=== PATIENT | female | born 1975 | race Caucasian/White ===

== ENCOUNTER 2016-11-17 15:37 | Emergency (ER) | payer BC, MEDICAID ==
[~2016-11-17] VITALS: Wt 72.0 kg
[~2016-11-17 15:37] MED LIST: AMO500 PO; AUG875 PO; CALC-649; FERR240T9; HYDR-3498 PO; IBUP-1542 PO; NITR-58 PO; PHEN-538 PO; PREN-15; PRENATAL VITAMINS; VIT1TABL76
[2016-11-17] MEDS ORDERED: CEPH-443 PO (16:51)
[2016-11-17] MEDS ORDERED: IBUP-1542 PO (16:51)
[2016-11-17] MEDS ORDERED: ULT50 PO (16:51)
--- NOTE | 2016-11-17 16:54 | ERD ---
ER Documentation Chief Complaint Date/Time DATE: 11/17/16 TIME: 16:53 Chief Complaint left lower dental pain for the past 3 days. HPI This 41-year-old female presents with left lower dental pain for last week. She has an appointment with a dentist x-ray patient is a fevers, vomiting, chest pain, difficulty swallowing or difficulties with breathing. ROS All systems reviewed and are negative except as per history of present illness. Medications Home Meds Active Scripts Ibuprofen* (Motrin*) 600 Mg Tab, 600 MG PO Q6, #20 TAB Prov:VAN MITCHELL MD 11/17/16 Tramadol HCl (Tramadol HCl) 50 Mg Tablet, 50 MG PO Q4 Y for PAIN, #20 TAB Prov:VAN MITCHELL MD 11/17/16 Cephalexin* (Keflex*) 500 Mg Capsule, 500 MG PO QID for 10 Days, CAP Prov:VAN MITCHELL MD 11/17/16 Phenazopyridine Hcl* (Pyridium*) 200 Mg Tab, 200 MG PO TID Y for URINARY PAIN, # 6 TAB Prov:DAKOTA SAAVEDRA NP 11/06/16 Nitrofurantoin Monohyd Macrocr* (Macrobid*) 100 Mg Capsr, 100 MG PO BID for 7 Days, CAP Prov:DAKOTA SAAVEDRA NP 11/06/16 Amoxicillin* (Amoxicillin*) 500 Mg Cap, 500 MG PO TID for 10 Days, CAP Prov:CHANTEL LÓPEZ PA-C 04/07/16 Ibuprofen* (Motrin*) 600 Mg Tab, 600 MG PO Q6, #30 TAB Prov:CHANTEL LÓPEZ PA-C 04/07/16 Ibuprofen* (Ibuprofen*) 600 Mg Tablet, 600 MG PO Q6, #30 TAB Prov:CHANTEL LÓPEZ PA-C 10/03/15 Amoxicillin-Clavulanate K* (Augmentin*) 875 Mg Tab, 875 MG PO BID for 7 Days, TAB Prov:CHANTEL LÓPEZ PA-C 10/03/15 Hydrocodone Bit-Acetaminophen* ([place]*) 5-325 Mg Tab, 1 TAB PO Q4H Y for PAIN, # 20 TAB Prov:CHANTEL LÓPEZ PA-C 10/03/15 Reported Medications Calcium Carbonate (Calcium) 1 Tab Tablet 09/01/10 Vit B12/Pyridoxine Hcl/Vit B1 (Pv Neuro Eve Tablet) 1 Tab Tablet 09/01/10 Ferrous Gluconate (Iron) 1 Tab Tablet 09/01/10 Vit/Fe Fumarate/Fa (Prenafirst Tablet) 1 Tab Tablet 09/01/10 [ Vitamins] No Conflict Check 06/29/10 Allergies Allergies: Coded Allergies: No Known Drug Allergies (Verified Allergy, Mild, 11/17/16) PMhx/Soc History of Surgery: Yes () Anesthesia Reaction: No Hx Neurological Disorder: No Hx Respiratory Disorders: No Hx Cardiac Disorders: No Hx Psychiatric Problems: No Hx Miscellaneous Medical Probl: No Hx Alcohol Use: No Hx Substance Use: No Hx Tobacco Use: No Physical Exam Vitals Vital Signs Date Time Temp Pulse Resp B/P Pulse Ox O2 Delivery O2 Flow Rate FiO2 11/17/16 15:41 98.5 95 20 115/74 96 Physical Exam Const: [] Alert, [id number] per Head: Atraumatic Eyes: Normal Conjunctiva ENT: Normal External Ears, Nose and Mouth. Patient has diffuse poor dentition primary in the left lower molar area. There is some surrounding gum erythema without facial swelling or induration and airway is patent. Neck: Full range of motion..~ No meningismus. Resp: Clear to auscultation bilaterally Cardio: Regular rate and rhythm, no murmurs Abd: Soft, non tender, non distended. Normal bowel sounds Skin: No petechiae or rashes Back: No midline or flank tenderness Ext: No cyanosis, or edema Neur: Awake and alert Psych: Normal Mood and Affect Procedures/MDM Patient presents with left lower dental pain with carious teeth possible early abscess without facial cellulitis, or obstruction, signs of sepsis. She will treated with Keflex and tramadol instructions to follow-up with dentist as scheduled. The patient was stable with no new complaints during the ER course. Clinically, there is no current evidence to suggest meningitis, sepsis, acute abdomen, pneumonia, acute coronary syndrome, pulmonary embolism, or any other emergent condition appearing to require further evaluation or hospitalization. The patient should certainly return for any new or worsening symptoms per the aftercare instructions. They should otherwise follow-up with her primary care doctor for reevaluation this week. Departure Diagnosis: Primary Impression: Pain, dental Condition: Stable Patient Instructions: Dental Pain Referrals: [facility] ([facility] walk in clinic) Additional Instructions: Cheque otro vez con metzger doctor primario/ dentista en el proximo talavera or regresa para mas o nueva simptomas. VAN MITCHELL MD Nov 17, 2016 16:54
== END 2016-11-17 18:03 | disposition home or self-care (01) ==
LOC: FTE 15:37
DX: K08.89 Other specified disorders of teeth and supporting structures (principal)
CPT/HCPCS: 99284

== ENCOUNTER 2016-11-28 11:32 | Emergency (ER) | payer BC ==
[~2016-11-28] VITALS: Ht 160 cm; Wt 77.0 kg
[~2016-11-28 11:32] MED LIST changes: +CEPH-443 PO; +ULT50 PO
[2016-11-28 11:37] VITALS: Ht 160 cm; Wt 77.0 kg
[2016-11-28 14:35] LABS: URINE BLOOD (Dip) POC Trace-lysed (NEGATIVE)
[2016-11-28] MEDS ORDERED: D-ME473S18 PO (14:48)
[2016-11-28] MEDS ORDERED: AZIT250T94 PO (14:49)
[2016-11-28 14:59] VITALS: BP 123/69; PULSE 81; RESP 20
--- NOTE | 2016-11-28 19:55 | ERD ---
ER Documentation Chief Complaint Date/Time DATE: 11/28/16 TIME: 19:54 Chief Complaint SORE THROAT , COUGH X 1 WEEK HPI This is a 41-year-old female presents today with a cough for a week. Cough is dry and constant patient also has a sore throat. Patient has been taking over- the-counter cough syrup however has not worked. Patient is complaining of urinary frequency however denies dysuria. She denies any fevers or chills. She denies any chest pain or shortness of breath. Her daughter is sick with similar symptoms. ROS 12 point review of systems was done, all negative except per HPI. Medications Home Meds Active Scripts Azithromycin* (Zithromax*) 250 Mg Tablet, 250 MG PO .ZPACK DIRECTED, #6 TAB TAKE 500 MG (2 TABS) THE FIRST DAY THEN 250 MG (1 TAB) DAYS 2-5 Prov:SAWYER PACHECO 11/28/16 Dextromethorphan Hb-Promethazine Hcl (Promethazine DM Syrup) 473 Ml Syrup, 10 ML PO Q6H Y for tos, #4 OZ Prov:SAWYER PACHECO 11/28/16 Ibuprofen* (Motrin*) 600 Mg Tab, 600 MG PO Q6, #20 TAB Prov:VAN MITCHELL MD 11/17/16 Tramadol HCl (Tramadol HCl) 50 Mg Tablet, 50 MG PO Q4 Y for PAIN, #20 TAB Prov:VAN MITCHELL MD 11/17/16 Cephalexin* (Keflex*) 500 Mg Capsule, 500 MG PO QID for 10 Days, CAP Prov:VAN MITCHELL MD 11/17/16 Phenazopyridine Hcl* (Pyridium*) 200 Mg Tab, 200 MG PO TID Y for URINARY PAIN, # 6 TAB Prov:DAKOTA SAAVEDRA NP 11/06/16 Nitrofurantoin Monohyd Macrocr* (Macrobid*) 100 Mg Capsr, 100 MG PO BID for 7 Days, CAP Prov:DAKOTA SAAVEDRA NP 11/06/16 Amoxicillin* (Amoxicillin*) 500 Mg Cap, 500 MG PO TID for 10 Days, CAP Prov:CHANTEL LÓPEZ PA-C 04/07/16 Ibuprofen* (Motrin*) 600 Mg Tab, 600 MG PO Q6, #30 TAB Prov:CHANTEL LÓPEZ PA-C 04/07/16 Ibuprofen* (Ibuprofen*) 600 Mg Tablet, 600 MG PO Q6, #30 TAB Prov:CHANTEL LÓPEZ PA-C 10/03/15 Amoxicillin-Clavulanate K* (Augmentin*) 875 Mg Tab, 875 MG PO BID for 7 Days, TAB Prov:CHANTEL LÓPEZ PA-C 10/03/15 Hydrocodone Bit-Acetaminophen* ([place]*) 5-325 Mg Tab, 1 TAB PO Q4H Y for PAIN, # 20 TAB Prov:CHANTEL LÓPEZ PA-C 10/03/15 Reported Medications Calcium Carbonate (Calcium) 1 Tab Tablet 09/01/10 Vit B12/Pyridoxine Hcl/Vit B1 (Pv Neuro Eve Tablet) 1 Tab Tablet 09/01/10 Ferrous Gluconate (Iron) 1 Tab Tablet 09/01/10 Vit/Fe Fumarate/Fa (Prenafirst Tablet) 1 Tab Tablet 09/01/10 [ Vitamins] No Conflict Check 06/29/10 Allergies Allergies: Coded Allergies: No Known Drug Allergies (Verified Allergy, Mild, 11/17/16) PMhx/Soc History of Surgery: Yes () Anesthesia Reaction: No Hx Neurological Disorder: No Hx Respiratory Disorders: No Hx Cardiac Disorders: No Hx Psychiatric Problems: No Hx Miscellaneous Medical Probl: No Hx Alcohol Use: No Hx Substance Use: No Hx Tobacco Use: No Smoking Status: Never smoker Physical Exam Vitals Vital Signs Date Time Temp Pulse Resp B/P Pulse Ox O2 Delivery O2 Flow Rate FiO2 11/28/16 14:59 81 20 123/69 100 Room Air 11/28/16 11:37 98.2 82 18 123/60 99 Physical Exam GENERAL: The patient is well-developed, well-nourished, in no acute distress. NECK: Cervical spine is non tender with no step off. Supple, no nuchal rigidity HEENT: Atraumatic. Pupils equal, round and reactive to light. Extraocular muscles are grossly intact. Conjunctivae pink, no discharge. Bilateral tympanic membranes are clear with no evidence of erythema, effusion or dulling of the light reflex. Tonsilar erythema with no exudates or uvular deviation. Clear rhinorrhea. RESPIRATORY: Clear to auscultation bilaterally. There are no rales, wheezes or rhonchi. HEART: Regular rate and rhythm. No murmurs, clicks, rubs or gallops. EXTREMITIES: No clubbing or cyanosis. Full range of motion. Grossly neurovascularly intact. NEUROLOGIC: Alert and oriented. Cranial nerves II through XII are intact. SKIN: There is no rash. The skin is warm and dry. Results 24 hrs Laboratory Tests Test 11/28/16 14:36 Bedside Urine Blood Trace-lysed Bedside Urine Glucose (UA) Negative Bedside Urine Ketones (LAB) Negative Bedside Urine Leukocyte Esterase (L Negative Bedside Urine Nitrite (LAB) Negative Bedside Urine Protein (LAB) Negative Bedside Urine pH (LAB) 5.0 Procedures/MDM Differential diagnosis includes but is not limited to; Viral URI, allergic rhinitis, bronchitis, pertussis,pneumonia. This is likely viral in etiology. Clinical suspicion for pneumonia is low as patient appears well, is not hypoxic or in any respiratory distress. Additionally, patients physical examination is benign. Plan was discussed with patient they understand and agree. Patient needs to follow up with PCP in 1-2 days or return to ER sooner if symptoms worsen. Departure Diagnosis: Primary Impression: Upper respiratory infection Condition: Stable Patient Instructions: Preventing Common Respiratory Infections Additional Instructions: Llame al doctor MAANA y brittney mireille TALITA PARA DENTRO DE 1-2 [place].Dgale a la secretaria que nosotros le instruimos hacer esta talita.Avise o llame si metzger condicin se empeora antes de la talita. Regresa aqui si peor o no mejor. SAWYER PACHECO Nov 28, 2016 19:55
== END 2016-11-28 15:01 | disposition home or self-care (01) ==
LOC: FTE 11:32
DX: J06.9 Acute upper respiratory infection, unspecified (principal)
CPT/HCPCS: 81003; 99284

== ENCOUNTER 2016-12-21 12:56 | Emergency (ER) | payer BC ==
[~2016-12-21] VITALS: Ht 157.5 cm; Wt 76.5 kg
[~2016-12-21 12:56] MED LIST changes: +AZIT250T94 PO; +D-ME473S18 PO; +TRAM50TA2 PO; -ULT50 PO
[2016-12-21 13:00] VITALS: Ht 157.5 cm; Wt 76.5 kg
[2016-12-21] MEDS ORDERED: NPH10OT RIGHT EAR (13:27)
[2016-12-21] MEDS ORDERED: ACET1TAB40 PO (13:27)
[2016-12-21] MEDS ORDERED: DOXY100T20 PO (13:27)
--- NOTE | 2016-12-21 13:32 | ERD ---
ER Documentation Chief Complaint Date/Time DATE: 12/21/16 TIME: 13:30 Chief Complaint Complains of right ear pain x 3 days HPI This 41-year-old female presents with right ear pain for last 3 days. She has cough, congestion, bleeding or discharge. ROS All systems reviewed and are negative except as per history of present illness. Medications Home Meds Active Scripts Acetaminophen with Codeine (Acetaminophen-Cod #3 Tablet) 1 Each Tablet, 1 TAB PO Q6H Y for PAIN, #10 TAB Prov:VAN MITCHELL MD 12/21/16 Neomycin/Polymyxin/Hydrocort* (Cortisporin* Otic) 10 Ml Susp, 4 DROP RIGHT EAR QID for 7 Days, EA Prov:VAN MITCHELL MD 12/21/16 Doxycycline Hyclate* (Doxycycline Hyclate*) 100 Mg Tablet.dr, 100 MG PO BID for 7 Days, TAB Prov:VAN MITCHELL MD 12/21/16 Azithromycin* (Zithromax*) 250 Mg Tablet, 250 MG PO .ZPACK DIRECTED, #6 TAB TAKE 500 MG (2 TABS) THE FIRST DAY THEN 250 MG (1 TAB) DAYS 2-5 Prov:SAWYER PACHECO 11/28/16 Dextromethorphan Hb-Promethazine Hcl (Promethazine DM Syrup) 473 Ml Syrup, 10 ML PO Q6H Y for tos, #4 OZ Prov:SAWYER PACHECO 11/28/16 Ibuprofen* (Motrin*) 600 Mg Tab, 600 MG PO Q6, #20 TAB Prov:VAN MITCHELL MD 11/17/16 Tramadol HCl (Tramadol HCl) 50 Mg Tablet, 50 MG PO Q4 Y for PAIN, #20 TAB Prov:VAN MITCHELL MD 11/17/16 Cephalexin* (Keflex*) 500 Mg Capsule, 500 MG PO QID for 10 Days, CAP Prov:VAN MITCHELL MD 11/17/16 Phenazopyridine Hcl* (Pyridium*) 200 Mg Tab, 200 MG PO TID Y for URINARY PAIN, # 6 TAB Prov:DAKOTA SAAVEDRA NP 11/06/16 Nitrofurantoin Monohyd Macrocr* (Macrobid*) 100 Mg Capsr, 100 MG PO BID for 7 Days, CAP Prov:DAKOTA SAAVEDRA CATHERINE 11/06/16 Amoxicillin* (Amoxicillin*) 500 Mg Cap, 500 MG PO TID for 10 Days, CAP Prov:CHANTEL LÓPEZ SYBIL 04/07/16 Ibuprofen* (Motrin*) 600 Mg Tab, 600 MG PO Q6, #30 TAB Prov:CHANTEL LÓPEZ SYBIL 04/07/16 Ibuprofen* (Ibuprofen*) 600 Mg Tablet, 600 MG PO Q6, #30 TAB Prov:CHANTEL LÓPEZ SYBIL 10/03/15 Amoxicillin-Clavulanate K* (Augmentin*) 875 Mg Tab, 875 MG PO BID for 7 Days, TAB Prov:CHANTEL LÓPEZ SYBIL 10/03/15 Hydrocodone Bit-Acetaminophen* ([place]*) 5-325 Mg Tab, 1 TAB PO Q4H Y for PAIN, # 20 TAB Prov:CHANTEL LÓPEZ SYBIL 10/03/15 Reported Medications Calcium Carbonate (Calcium) 1 Tab Tablet 09/01/10 Vit B12/Pyridoxine Hcl/Vit B1 (Pv Neuro Eve Tablet) 1 Tab Tablet 09/01/10 Ferrous Gluconate (Iron) 1 Tab Tablet 09/01/10 Vit/Fe Fumarate/Fa (Prenafirst Tablet) 1 Tab Tablet 09/01/10 [ Vitamins] No Conflict Check 06/29/10 Allergies Allergies: Coded Allergies: No Known Drug Allergies (Verified Allergy, Mild, 11/17/16) PMhx/Soc History of Surgery: Yes () Anesthesia Reaction: No Hx Neurological Disorder: No Hx Respiratory Disorders: No Hx Cardiac Disorders: No Hx Psychiatric Problems: No Hx Miscellaneous Medical Probl: No Hx Alcohol Use: No Hx Substance Use: No Hx Tobacco Use: No Physical Exam Vitals Vital Signs Date Time Temp Pulse Resp B/P Pulse Ox O2 Delivery O2 Flow Rate FiO2 12/21/16 13:00 98.3 87 20 116/74 98 Physical Exam Const: [] Alert, [id number] Head: Atraumatic Eyes: Normal Conjunctiva ENT: Normal External Ears, Nose and Mouth. There is some tenderness and pain with passive range of motion of the right external ear. There is a small papule in the external auditory canal without erythema or induration. TM appears normal. Neck: Full range of motion..~ No meningismus. Resp: Clear to auscultation bilaterally Cardio: Regular rate and rhythm, no murmurs Abd: Soft, non tender, non distended. Normal bowel sounds Skin: No petechiae or rashes Back: No midline or flank tenderness Ext: No cyanosis, or edema Neur: Awake and alert Psych: Normal Mood and Affect Procedures/MDM Patient presents with signs and symptoms of right otitis externa with likely folliculitis of the external auditory canal. She will be treated with Cortisporin, doxycycline and Tylenol No. 3. There is no evidence of significant facial cellulitis, malignant otitis externa, mastoiditis Departure Diagnosis: Primary Impression: Otitis externa Otitis externa type: unspecified type Laterality: right Chronicity: acute Qualified Code: H60.501 - Acute otitis externa of right ear, unspecified type Additional Impression: Right ear pain Condition: Stable Patient Instructions: External Ear Infection (Adult) Additional Instructions: Cheque otro vez con metzger doctor primario en el proximo talavera or regresa para mas o nueva simptomas. VAN MITCHELL MD Dec 21, 2016 13:32
== END 2016-12-21 13:35 | disposition home or self-care (01) ==
LOC: FTE 12:56
DX: H60.501 Unspecified acute noninfective otitis externa, right ear (principal)
CPT/HCPCS: 99284

== ENCOUNTER 2016-12-28 08:34 | Emergency (ER) | payer BC ==
[~2016-12-28] VITALS: Ht 154.9 cm; Wt 76.0 kg
[~2016-12-28 08:34] MED LIST changes: +ACET1TAB40 PO; +DOXY100T20 PO; +NPH10OT RIGHT EAR
[2016-12-28 08:36] VITALS: Ht 154.9 cm; Wt 76.0 kg
[2016-12-28] MEDS ORDERED: AMOX1TAB10 PO (09:02)
[2016-12-28] MEDS ORDERED: CIPR7.5D4 RIGHT EAR (09:02)
[2016-12-28] MEDS ORDERED: IBUP-1542 PO (09:04)
--- NOTE | 2016-12-28 09:10 | ERD ---
ER Documentation Chief Complaint Date/Time DATE: 12/28/16 TIME: 09:05 Chief Complaint right ear pain x 1 week, finished antibiotics yesterday HPI 41-year-old female complaining of right ear pain 1 week. Patient was seen here 7 days ago was diagnosed with otitis externa. She was given Cortisporin otic and doxycycline p.o. Patient stated that she finished all the antibiotics yesterday, but she still has the ear pain. Now she is unable to hear from the right ear. Denies fever or chills. Denies facial or jaw pain or swelling. ROS All systems reviewed and are negative except as per history of present illness. Medications Home Meds Active Scripts Ibuprofen* (Motrin*) 600 Mg Tab, 600 MG PO Q6H Y for PAIN AND OR ELEVATED TEMP, #30 TAB Prov:IESHA WHITT REHAB RN 12/28/16 Amoxicillin/Potassium Clav (Amox-Clav 875-125 mg Tablet) 875-125 mg Tab, 1 TAB PO BID for 7 Days, #14 TAB Prov:IESHA WHITT NP 12/28/16 Ciprofloxacin Hcl/Dexameth (Ciprodex Otic Suspension) 7.5 Ml Drops.susp, 4 DROP RIGHT EAR BID for 7 Days, EA Prov:IESHA WHITT NP 12/28/16 Acetaminophen with Codeine (Acetaminophen-Cod #3 Tablet) 1 Each Tablet, 1 TAB PO Q6H Y for PAIN, #10 TAB Prov:VAN MITCHELL MD 12/21/16 Neomycin/Polymyxin/Hydrocort* (Cortisporin* Otic) 10 Ml Susp, 4 DROP RIGHT EAR QID for 7 Days, EA Prov:VAN MITCHELL MD 12/21/16 Doxycycline Hyclate* (Doxycycline Hyclate*) 100 Mg Tablet.dr, 100 MG PO BID for 7 Days, TAB Prov:VAN MITCHELL MD 12/21/16 Azithromycin* (Zithromax*) 250 Mg Tablet, 250 MG PO .SCOTTY DIRECTED, #6 TAB TAKE 500 MG (2 TABS) THE FIRST DAY THEN 250 MG (1 TAB) DAYS 2-5 Prov:SAWYER PACHECO 11/28/16 Dextromethorphan Hb-Promethazine Hcl (Promethazine DM Syrup) 473 Ml Syrup, 10 ML PO Q6H Y for tos, #4 OZ Prov:SAWYER PACHECO 11/28/16 Ibuprofen* (Motrin*) 600 Mg Tab, 600 MG PO Q6, #20 TAB Prov:VAN MITCHELL MD 11/17/16 Tramadol HCl (Tramadol HCl) 50 Mg Tablet, 50 MG PO Q4 Y for PAIN, #20 TAB Prov:VAN MITCHELL MD 11/17/16 Cephalexin* (Keflex*) 500 Mg Capsule, 500 MG PO QID for 10 Days, CAP Prov:VAN MITCHELL MD 11/17/16 Phenazopyridine Hcl* (Pyridium*) 200 Mg Tab, 200 MG PO TID Y for URINARY PAIN, # 6 TAB Prov:DAKOTA SAAVEDRA NP 11/06/16 Nitrofurantoin Monohyd Macrocr* (Macrobid*) 100 Mg Capsr, 100 MG PO BID for 7 Days, CAP Prov:DAKOTA SAAVEDRA NP 11/06/16 Amoxicillin* (Amoxicillin*) 500 Mg Cap, 500 MG PO TID for 10 Days, CAP Prov:CHANTEL LÓPEZ PA-C 04/07/16 Ibuprofen* (Motrin*) 600 Mg Tab, 600 MG PO Q6, #30 TAB Prov:CAHNTEL LÓPEZ PA-C 04/07/16 Ibuprofen* (Ibuprofen*) 600 Mg Tablet, 600 MG PO Q6, #30 TAB Prov:CHANTEL LÓPEZ PA-C 10/03/15 Amoxicillin-Clavulanate K* (Augmentin*) 875 Mg Tab, 875 MG PO BID for 7 Days, TAB Prov:CHANTEL LÓPEZ PA-C 10/03/15 Hydrocodone Bit-Acetaminophen* ([place]*) 5-325 Mg Tab, 1 TAB PO Q4H Y for PAIN, # 20 TAB Prov:CHANTEL LÓPEZ PA-C 10/03/15 Reported Medications Calcium Carbonate (Calcium) 1 Tab Tablet 09/01/10 Vit B12/Pyridoxine Hcl/Vit B1 (Pv Neuro Eve Tablet) 1 Tab Tablet 09/01/10 Ferrous Gluconate (Iron) 1 Tab Tablet 09/01/10 Vit/Fe Fumarate/Fa (Prenafirst Tablet) 1 Tab Tablet 09/01/10 [ Vitamins] No Conflict Check 06/29/10 Allergies Allergies: Coded Allergies: No Known Drug Allergies (Verified Allergy, Mild, 11/17/16) PMhx/Soc Medical and Surgical Hx: pt denies Medical Hx History of Surgery: No Anesthesia Reaction: No Hx Neurological Disorder: No Hx Respiratory Disorders: No Hx Cardiac Disorders: No Hx Psychiatric Problems: No Hx Miscellaneous Medical Probl: No Hx Alcohol Use: No Hx Substance Use: No Hx Tobacco Use: No Smoking Status: Never smoker Physical Exam Vitals Vital Signs Date Time Temp Pulse Resp B/P Pulse Ox O2 Delivery O2 Flow Rate FiO2 12/28/16 08:36 98.7 68 18 129/68 100 Physical Exam General impression: Well-developed, well-nourished. Alert, oriented, in no acute distress Head: Normocephalic, atraumatic. Eyes: PERRL, EOM normal. Conjunctiva not injected. ENT: Left external canals clear, TM pearly anaya. Right canal erythema with canal narrowing, serous drainage noted. No tragal or auricle erythema, swelling , or tenderness. No TM erythema or bulging. Nasal mucosa, oral mucosa and oropharynx are normal. Neck: Supple, nontender. No lymphadenopathy. No nuchal rigidity. Respiration: Normal respiratory effort. Lungs clear to auscultate bilaterally. No wheezes, rales or rhonchi. Cardiovascular: Regular rate and rhythm. No murmurs or extra heart sounds. Neuro: Mental status normal, speech normal. 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 Skin: Normal turgor. No rash or lesions. Psych: Normal mood and affect. Procedures/MDM Well-appearing 41-year-old female presented to ED with right otitis externa that did not resolve after 7 days of antibiotics treatment. No sign of mastoiditis or otitis media. I will prescribe her with different antibiotics and have her follow-up with her PCP for ENT referral. Patient appears well, stable for discharge and outpatient management. Medical decision making shared with patient and family. Education provided to patient and family. Patient and family expressed understanding of the plan. Medications on discharge: Ciprodex otic, Augmentin. Follow-up: Primary care provider in 2-3 days or return to ED if worse. Departure Diagnosis: Primary Impression: Otitis externa of right ear Otitis externa type: other infective Chronicity: acute Qualified Code: H60.391 - Other infective acute otitis externa of right ear Condition: Good Patient Instructions: External Ear Infection (Adult) [facility] Usted se cardoza hecho un examen mdico de control que le indica que no est en mireille condicin que requiera tratamiento urgente en el Departamento de Emergencia. Un estudio ms profundo y el tratamiento de richter condicin pueden esperar sin ningn riesgo hasta que usted sea atendida/o en el consultorio de richter mdico o mireille cl indira. Es responsabilidad suya arreglar mireille talita para el seguimiento del carmen. MANEJO DE CONDICIONES NO URGENTES EN EL FUTURO 1) Si usted tiene un mdico de atencin primaria: Usted debera llamar a richter mdico de atencin primaria antes de venir al departamento de emergencia. Despus de las horas de consultorio, richter doctor o richter asociado/a est disponible por telfono. El mdico o enfermero de ahmet en el servicio telefnico puede asesorarle por oswaldo medio para atender el problema, o carmen contrario se puede programar mireille talita. 2) Si usted no tiene un mdico de atencin primaria: Llame al mdico o clnica de referencia que aparece abajo kate las horas de consultorio para hacer mireille talita para que le vean. CLINICAS: [facility] [phone] [id number] [facility] [phone] [facility] [phone] [address] [facility]. [facility] [phone] [address] [facility]. [facility] [phone] [address] [facility]. [phone] [place] Additional Instructions: Llame al doctor MAANA y brittney mireille TALITA PARA DENTRO DE 2-3 [place].Dgale a la secretaria que nosotros le instruimos hacer esta talita.Avise o llame si richter condicin se empeora antes de la talita. Regresa aqui si peor o no mejor. Specialist:Usted tiene mireille condicin mdica que requiere que angelito a un especialista dentro de los prximos 1-2 arango.POR FAVOR,CON RICHTER SEGUIMIENTO DE PRIMARIA PHSICIAN refferal. SI USTED NO TIENE UN MDICO GENERAL Y / O USTED NO PUEDE PAGAR chance a un mdico,los siguientes simmons RECURSOS sido suministrado a usted. ES RICHTER RESPONSABILIDAD PARA SER VISTOS POR EL ESPECIALISTA: IESHA WHITT NP Dec 28, 2016 09:10
== END 2016-12-28 09:10 | disposition home or self-care (01) ==
LOC: FTE 08:34
DX: H60.391 Other infective otitis externa, right ear (principal)
CPT/HCPCS: 99283

== ENCOUNTER 2017-01-25 17:42 | Emergency (ER) | payer BC ==
[~2017-01-25] VITALS: Wt 70.5 kg
[~2017-01-25 17:42] MED LIST changes: +AMOX1TAB10 PO; +CIPR7.5D4 RIGHT EAR
[2017-01-25] MEDS ORDERED: NPH10OT RIGHT EAR (19:38)
[2017-01-25] MEDS ORDERED: NAPR-260 PO (19:39)
--- NOTE | 2017-01-25 19:47 | ERD ---
ER Documentation Chief Complaint Date/Time DATE: 01/25/17 TIME: 19:42 Chief Complaint R EAR PAIN FOR THE PAST FEW MONTHS INTERMITTENT. NO DRAINAGE. COUGH/FEVER HPI This is a 41-year-old female who presents to the emergency department today complaining of right ear pain for the past 2 months. Patient states she has been seen here twice and has taken her medication with no improvement in symptoms. States she continues to have ear pain. Denies any fevers or chills. ROS All systems reviewed and are negative except as per history of present illness. Medications Home Meds Active Scripts Naproxen* (Naprosyn*) 500 Mg Tablet, 500 MG PO BID Y for PAIN AND/OR INFLAMMATION, #30 TAB Prov:LUZ MARIA MCKEON PA-C 01/25/17 Neomycin/Polymyxin/Hydrocort* (Cortisporin* Otic) 10 Ml Susp, 4 DROP RIGHT EAR QID for 14 Days, EA Prov:LUZ MARIA MCKEON PA-C 01/25/17 Ibuprofen* (Motrin*) 600 Mg Tab, 600 MG PO Q6H Y for PAIN AND OR ELEVATED TEMP, #30 TAB Prov:IESHA WHITT NP 12/28/16 Amoxicillin/Potassium Clav (Amox-Clav 875-125 mg Tablet) 875-125 mg Tab, 1 TAB PO BID for 7 Days, #14 TAB Prov:IESHA WHITT NP 12/28/16 Ciprofloxacin Hcl/Dexameth (Ciprodex Otic Suspension) 7.5 Ml Drops.susp, 4 DROP RIGHT EAR BID for 7 Days, EA Prov:IESHA WHITT NP 12/28/16 Acetaminophen with Codeine (Acetaminophen-Cod #3 Tablet) 1 Each Tablet, 1 TAB PO Q6H Y for PAIN, #10 TAB Prov:VAN MITCHELL MD 12/21/16 Neomycin/Polymyxin/Hydrocort* (Cortisporin* Otic) 10 Ml Susp, 4 DROP RIGHT EAR QID for 7 Days, EA Prov:VAN MITCHELL MD 12/21/16 Doxycycline Hyclate* (Doxycycline Hyclate*) 100 Mg Tablet.dr, 100 MG PO BID for 7 Days, TAB Prov:VAN MITCHELL MD 12/21/16 Azithromycin* (Zithromax*) 250 Mg Tablet, 250 MG PO .SCOTTY DIRECTED, #6 TAB TAKE 500 MG (2 TABS) THE FIRST DAY THEN 250 MG (1 TAB) DAYS 2-5 Prov:SAWYER PACHECO 11/28/16 Dextromethorphan Hb-Promethazine Hcl (Promethazine DM Syrup) 473 Ml Syrup, 10 ML PO Q6H Y for tos, #4 OZ Prov:SAWYER PACHECO 11/28/16 Ibuprofen* (Motrin*) 600 Mg Tab, 600 MG PO Q6, #20 TAB Prov:VNA MITCHELL MD 11/17/16 Tramadol HCl (Tramadol HCl) 50 Mg Tablet, 50 MG PO Q4 Y for PAIN, #20 TAB Prov:VAN MITCHELL MD 11/17/16 Cephalexin* (Keflex*) 500 Mg Capsule, 500 MG PO QID for 10 Days, CAP Prov:VAN MITCHELL MD 11/17/16 Phenazopyridine Hcl* (Pyridium*) 200 Mg Tab, 200 MG PO TID Y for URINARY PAIN, # 6 TAB Prov:DAKOTA SAAVEDRA NP 11/06/16 Nitrofurantoin Monohyd Macrocr* (Macrobid*) 100 Mg Capsr, 100 MG PO BID for 7 Days, CAP Prov:DAKOTA SAAVEDRA NP 11/06/16 Amoxicillin* (Amoxicillin*) 500 Mg Cap, 500 MG PO TID for 10 Days, CAP Prov:CHANTEL LÓPEZ PA-C 04/07/16 Ibuprofen* (Motrin*) 600 Mg Tab, 600 MG PO Q6, #30 TAB Prov:CHANTEL LÓPEZ PA-C 04/07/16 Ibuprofen* (Ibuprofen*) 600 Mg Tablet, 600 MG PO Q6, #30 TAB Prov:CHANTEL LÓPEZ PA-C 10/03/15 Amoxicillin-Clavulanate K* (Augmentin*) 875 Mg Tab, 875 MG PO BID for 7 Days, TAB Prov:CHANTEL LÓPEZ PA-C 10/03/15 Hydrocodone Bit-Acetaminophen* ([place]*) 5-325 Mg Tab, 1 TAB PO Q4H Y for PAIN, # 20 TAB Prov:CHANTEL LÓPEZ PA-C 10/03/15 Reported Medications Calcium Carbonate (Calcium) 1 Tab Tablet 09/01/10 Vit B12/Pyridoxine Hcl/Vit B1 (Pv Neuro Eve Tablet) 1 Tab Tablet 09/01/10 Ferrous Gluconate (Iron) 1 Tab Tablet 09/01/10 Vit/Fe Fumarate/Fa (Prenafirst Tablet) 1 Tab Tablet 09/01/10 [ Vitamins] No Conflict Check 06/29/10 Allergies Allergies: Coded Allergies: No Known Drug Allergies (Verified Allergy, Mild, 11/17/16) PMhx/Soc History of Surgery: No Anesthesia Reaction: No Hx Neurological Disorder: No Hx Respiratory Disorders: No Hx Cardiac Disorders: No Hx Psychiatric Problems: No Hx Miscellaneous Medical Probl: No Hx Alcohol Use: No Hx Substance Use: No Hx Tobacco Use: No Physical Exam Vitals Vital Signs Date Time Temp Pulse Resp B/P Pulse Ox O2 Delivery O2 Flow Rate FiO2 01/25/17 18:00 99.5 85 20 138/78 98 Physical Exam Const: No acute distress Head: Atraumatic Eyes: Normal Conjunctiva ENT: Left ear normal. TM normal. Right ear with cottage cheeselike material and serous drainage. No tragal or auricle erythema, swelling or tenderness. Nontender mastoid. Nose no drainage. Throat no erythema no exudate Neck: Full range of motion..~ No meningismus. Resp: Clear to auscultation bilaterally Cardio: Regular rate and rhythm, no murmurs Ext: No cyanosis, or edema Neur: Awake and alert Psych: Normal Mood and Affect Procedures/MDM This a 41-year-old female who presents to the emergency department today complaining of right ear pain for the past 2 months. Patient was seen in the [facility] area of the emergency department today patient has been seen here twice in the emergency department for the same symptoms. She was seen on December 21 and December 28 and treated with 2 different antibiotics for otitis externa. Patient had been given doxycycline, Cortisporin on her first visit and was given Augmentin on her second visit. Patient presents with similar complaints and physical exam finding today. Patient symptoms at this time consistent with otitis externa. she is nontender mastoid there is no erythema or warmth and I have low suspicion for mastoiditis, deep space tracking infection or cellulitis. Patient is afebrile and otherwise well-appearing. I discussed the patient with Dr. Linda and he has recommended a longer course of Cortisporin. Patient was also given a prescription for Naprosyn. I have explained to the patient multiple times that she will need to see an ENT specialist. I have explained to her what this is. I have explained her that she needs to go to her clinic and get referral for the ENT specialist. Patient was given a list of names for ENT referral. At this time the patient is stable for discharge and outpatient management. Patient should follow up with their PCP in the next 1-2 days. They may return to the emergency department sooner for any persistent or worsening of symptoms. Patient understood and agreed with the plan. Departure Diagnosis: Primary Impression: Right ear pain Condition: Fair Patient Instructions: Otitis Externa (Child) Referrals: MARIA DEL ROSARIO MCCARTY MD, ANNIE EDGE,TANYA HUFF,BUNNY GARCIA,RIMA CASTLE,RAISSA VALDES,NANCY MONTANO,EPHRAIM GAMA,OXANA RODRIGUEZ,EPHRAIM FRY [facility] () Usted se cardoza hecho un examen mdico de control que le indica que no est en mireille condicin que requiera tratamiento urgente en el Departamento de Emergencia. Un estudio ms profundo y el tratamiento de metzger condicin pueden esperar sin ningn riesgo hasta que usted sea atendida/o en el consultorio de metzger mdico o mireille cl indira. Es responsabilidad suya arreglar mireille talita para el seguimiento del carmen. MANEJO DE CONDICIONES NO URGENTES EN EL FUTURO 1) Si usted tiene un mdico de atencin primaria: Usted debera llamar a metzger mdico de atencin primaria antes de venir al departamento de emergencia. Despus de las horas de consultorio, metzger doctor o metzger asociado/a est disponible por telfono. El mdico o enfermero de ahmet en el servicio telefnico puede asesorarle por oswaldo medio para atender el problema, o carmen contrario se puede programar mireille talita. 2) Si usted no tiene un mdico de atencin primaria: Llame al mdico o clnica de referencia que aparece abajo kate las horas de consultorio para hacer mireille talita para que le vean. CLINICAS: [facility] [phone] [facility] [phone] [facility] [phone] [facility] [phone] [place] [address] [phone] [facility] [phone] [address] Additional Instructions: Llame al doctor MAANA y brittney mireille TALITA PARA DENTRO DE 1-2 [place].Dgale a la secretaria que nosotros le instruimos hacer esta talita.Avise o llame si metzger condicin se empeora antes de la talita. Regresa aqui si peor o no mejor. Make an appointment with ENT specialist Use drops as prescribed. Keep ear dry with cotton Take Naprosyn or Tylenol or Motrin for pain LUZ MARIA MCKEON PA-C Jan 25, 2017 19:47
== END 2017-01-25 19:40 | disposition home or self-care (01) ==
LOC: FTE 17:42 → E/R 19:40
DX: H92.01 Otalgia, right ear (principal)
CPT/HCPCS: 99283

== ENCOUNTER 2017-08-11 17:01 | Emergency (ER) | payer BC ==
[~2017-08-11] VITALS: Ht 154.9 cm; Wt 78.0 kg
[~2017-08-11 17:01] MED LIST changes: -AMO500 PO; +AMOX500C2 PO; +NAPR-260 PO
[2017-08-11 17:03] VITALS: Ht 154.9 cm; Wt 78.0 kg
[2017-08-11] MEDS ORDERED: AMOX500C2 PO (17:45)
[2017-08-11] MEDS ORDERED: IBUP800T25 PO (17:45)
--- NOTE | 2017-08-11 17:57 | ERD ---
ER Documentation Chief Complaint Date/Time DATE: 08/11/17 TIME: 17:49 Chief Complaint Pt presents with L lower mollar pain X 2 days, filling fell out. HPI 42-year-old female complaining of tooth pain 2 days. Patient stated that she had a filling in her left lower first molar. The feeling have fell out about 2 years ago. She had not had any problem until 2 days ago, she started experiencing pain. The pain is constant, better after taking ibuprofen. Patient had made appointment with her dentist, appointment is 5 days from now. Patient stated that she was told by her dentist to get a prescription of antibiotics before being seen. Denies fever or chills. ROS All systems reviewed and are negative except as per history of present illness. Medications Home Meds Active Scripts Amoxicillin* (Amoxicillin*) 500 Mg Cap, 500 MG PO TID for 7 Days, CAP Prov:IESHA WHITT [employer] REPA[employer] PERSON 08/11/17 Ibuprofen* (Motrin*) 800 Mg Tab, 800 MG PO Q6H Y for PAIN AND OR ELEVATED TEMP, #30 TAB Prov:IESHA WHITT [employer] REPAIR PERSON 08/11/17 Naproxen* (Naprosyn*) 500 Mg Tablet, 500 MG PO BID Y for PAIN AND/OR INFLAMMATION, #30 TAB Prov:LUZ MARIA MCKEON PA-C 01/25/17 Neomycin/Polymyxin/Hydrocort* (Cortisporin* Otic) 10 Ml Susp, 4 DROP RIGHT EAR QID for 14 Days, EA Prov:LUZ MARIA MCKEON PA-C 01/25/17 Ibuprofen* (Motrin*) 600 Mg Tab, 600 MG PO Q6H Y for PAIN AND OR ELEVATED TEMP, #30 TAB Prov:IESHA WHITT NP 12/28/16 Amoxicillin/Potassium Clav (Amox-Clav 875-125 mg Tablet) 875-125 mg Tab, 1 TAB PO BID for 7 Days, #14 TAB Prov:IESHA WHITT NP 12/28/16 Ciprofloxacin Hcl/Dexameth (Ciprodex Otic Suspension) 7.5 Ml Drops.susp, 4 DROP RIGHT EAR BID for 7 Days, EA Prov:IESHA WHITT [employer] REPAIR PERSON 12/28/16 Acetaminophen with Codeine (Acetaminophen-Cod #3 Tablet) 1 Each Tablet, 1 TAB PO Q6H Y for PAIN, #10 TAB Prov:VAN MITCHELL MD 12/21/16 Neomycin/Polymyxin/Hydrocort* (Cortisporin* Otic) 10 Ml Susp, 4 DROP RIGHT EAR QID for 7 Days, EA Prov:VAN MITCHELL MD 12/21/16 Doxycycline Hyclate* (Doxycycline Hyclate*) 100 Mg Tablet.dr, 100 MG PO BID for 7 Days, TAB Prov:VAN MITCHELL MD 12/21/16 Azithromycin* (Zithromax*) 250 Mg Tablet, 250 MG PO .ZPACK DIRECTED, #6 TAB TAKE 500 MG (2 TABS) THE FIRST DAY THEN 250 MG (1 TAB) DAYS 2-5 Prov:SAWYER PACHECO 11/28/16 Dextromethorphan Hb-Promethazine Hcl (Promethazine DM Syrup) 473 Ml Syrup, 10 ML PO Q6H Y for tos, #4 OZ Prov:SAWYER PACHECO 11/28/16 Ibuprofen* (Motrin*) 600 Mg Tab, 600 MG PO Q6, #20 TAB Prov:VAN MITCHELL MD 11/17/16 Tramadol HCl (Tramadol HCl) 50 Mg Tablet, 50 MG PO Q4 Y for PAIN, #20 TAB Prov:VAN MITCHELL MD 11/17/16 Cephalexin* (Keflex*) 500 Mg Capsule, 500 MG PO QID for 10 Days, CAP Prov:VAN MITCHELL MD 11/17/16 Phenazopyridine Hcl* (Pyridium*) 200 Mg Tab, 200 MG PO TID Y for URINARY PAIN, # 6 TAB Prov:DAKOTA SAAVEDRA NP 11/06/16 Nitrofurantoin Monohyd Macrocr* (Macrobid*) 100 Mg Capsr, 100 MG PO BID for 7 Days, CAP Prov:DAKOTA SAAVEDRA NP 11/06/16 Amoxicillin* (Amoxicillin*) 500 Mg Cap, 500 MG PO TID for 10 Days, CAP Prov:CHANTEL LÓPEZ PA-C 04/07/16 Ibuprofen* (Motrin*) 600 Mg Tab, 600 MG PO Q6, #30 TAB Prov:CHANTEL LÓPEZ PA-C 04/07/16 Ibuprofen* (Ibuprofen*) 600 Mg Tablet, 600 MG PO Q6, #30 TAB Prov:CHANTEL LÓPEZ PA-C 10/03/15 Amoxicillin-Clavulanate K* (Augmentin*) 875 Mg Tab, 875 MG PO BID for 7 Days, TAB Prov:CHANTEL LÓPEZ PA-C 10/03/15 Hydrocodone Bit-Acetaminophen* ([place]*) 5-325 Mg Tab, 1 TAB PO Q4H Y for PAIN, # 20 TAB Prov:CHANTEL LÓPEZ PA-C 10/03/15 Reported Medications Calcium Carbonate (Calcium) 1 Tab Tablet 09/01/10 Vit B12/Pyridoxine Hcl/Vit B1 (Pv Neuro Eve Tablet) 1 Tab Tablet 09/01/10 Ferrous Gluconate (Iron) 1 Tab Tablet 09/01/10 Vit/Fe Fumarate/Fa (Prenafirst Tablet) 1 Tab Tablet 09/01/10 [ Vitamins] No Conflict Check 06/29/10 Allergies Allergies: Coded Allergies: No Known Drug Allergies (Verified Allergy, Mild, 08/11/17) PMhx/Soc Medical and Surgical Hx: pt denies Medical Hx History of Surgery: Yes (csection) Anesthesia Reaction: No Hx Neurological Disorder: No Hx Respiratory Disorders: No Hx Cardiac Disorders: No Hx Psychiatric Problems: No Hx Miscellaneous Medical Probl: No Hx Alcohol Use: No Hx Substance Use: No Hx Tobacco Use: No Smoking Status: Never smoker Physical Exam Vitals Vital Signs Date Time Temp Pulse Resp B/P Pulse Ox O2 Delivery O2 Flow Rate FiO2 08/11/17 17:03 98.7 88 16 133/76 100 Physical Exam General: Well-developed, well-nourished, conscious and coherent, in no distress Skin: Warm and dry without rash, good texture and turgor Head: Normocephalic without evidence of trauma Eyes: Sclera and conjunctivae normal; pupils equal, round, and reactive to light; extraocular movements are intact Mouth/throat: Mucous membranes are moist. Multiple caries noted. Left lower first molar less than 50% of the dentition remain, erythema and tenderness in the gum surrounding. Neck: Supple without meningismus or adenopathy. Carotids are equal. Trachea midline. No bruits or JVD Chest: Normal AP diameter. Good expansion without retractions. Nontender. Lungs are clear to auscultate bilaterally with good tidal volume Heart: Regular rate and rhythm. No murmur, rub, or gallops heard Extremities: Full range of motion. Good strength bilaterally. No clubbing, cyanosis, or edema. Peripheral pulses are intact. Sensation intact Neuro: Alert and oriented 4, GCS 15. Cranial nerves grossly intact. Motor and sensory exams nonfocal. Moves all extremities. Speech clear. Gait normal Procedures/MDM 42-year-old female presented ED with dental pain, and dental infection. No sign of facial cellulitis. She already has appointment with her dentist, she was told to follow-up with appointment as scheduled. Patient appears well, stable for discharge and outpatient management. Medical decision making shared with patient and family. Education provided to patient and family. Patient and family expressed understanding of the plan. Medications on discharge: Ibuprofen, amoxicillin. Follow-up: Primary care provider in 2-3 days or return to ED if worse. Disclaimer: Inadvertent spelling and grammatical errors are likely due to EHR/ dictation software use and do not reflect on the overall quality of patient care. Also, please note that the electronic time recorded on this note does not necessarily reflect the actual time of the patient encounter. Departure Diagnosis: Primary Impression: Dental infection Condition: Stable Patient Instructions: Dental Pain Referrals: RAMIRO FARAH (PCP) [facility] DENT[facility] ([facility] walk in clinic) Additional Instructions: Llame al doctor joe rascon (Referral Sources) MAANA y brittney mireille TALITA PARA DENTRO DE [place] SEMANA. Dgale a la secretaria que nosotros le instruimos hacer esta talita.Avise o llame si metzger condicin se empeora antes de la talita. IESHA WHITT NP Aug 11, 2017 17:57
== END 2017-08-11 18:06 | disposition home or self-care (01) ==
LOC: FTE 17:01
DX: K04.7 Periapical abscess without sinus (principal)
CPT/HCPCS: 99283

== ENCOUNTER 2017-10-29 12:17 | Emergency (ER) | payer BC ==
[~2017-10-29] VITALS: Ht 162.6 cm; Wt 69.8 kg
[~2017-10-29 12:17] MED LIST changes: +IBUP800T25 PO
[2017-10-29 12:24] VITALS: Ht 162.6 cm; Wt 69.8 kg
[2017-10-29] MEDS ORDERED: D-ME473S2 PO (14:45)
[2017-10-29] MEDS ORDERED: IBUP-1542 PO (14:45)
--- NOTE | 2017-10-29 14:48 | ERD ---
ER Documentation Chief Complaint Chief Complaint c/o sore throat x3 days HPI This 6-year-old female presents with cough for last 2 days. She denies fever. She is here with a daughter with similar symptoms. She had a cough for last week but was fine for a week. She denies vomiting, vomiting, chest pain. ROS All systems reviewed and are negative except as per history of present illness. Medications Home Meds Active Scripts Dextromethorphan Hb-Promethazine Hcl* (Promethazine DM* Syrup) 473 Ml Syrup, 5 ML PO Q6 Y for COUGH for 5 Days, ML Prov:VAN MITCHELL MD 10/29/17 Ibuprofen* (Motrin*) 600 Mg Tab, 600 MG PO Q6, #15 TAB Prov:VAN MITCHELL MD 10/29/17 Amoxicillin* (Amoxicillin*) 500 Mg Cap, 500 MG PO TID for 7 Days, CAP Prov:IESHA WHITT NP 08/11/17 Ibuprofen* (Motrin*) 800 Mg Tab, 800 MG PO Q6H Y for PAIN AND OR ELEVATED TEMP, #30 TAB Prov:IESHA WHITT NP 08/11/17 Naproxen* (Naprosyn*) 500 Mg Tablet, 500 MG PO BID Y for PAIN AND/OR INFLAMMATION, #30 TAB Prov:LUZ MARIA MCKEON PA-C 01/25/17 Neomycin/Polymyxin/Hydrocort* (Cortisporin* Otic) 10 Ml Susp, 4 DROP RIGHT EAR QID for 14 Days, EA Prov:LUZ MARIA MCKEON PA-C 01/25/17 Ibuprofen* (Motrin*) 600 Mg Tab, 600 MG PO Q6H Y for PAIN AND OR ELEVATED TEMP, #30 TAB Prov:IESHA WHITT NP 12/28/16 Amoxicillin/Potassium Clav (Amox-Clav 875-125 mg Tablet) 875-125 mg Tab, 1 TAB PO BID for 7 Days, #14 TAB Prov:IESHA WHITT NP 12/28/16 Ciprofloxacin Hcl/Dexameth (Ciprodex Otic Suspension) 7.5 Ml Drops.susp, 4 DROP RIGHT EAR BID for 7 Days, EA Prov:IESHA WHITT NP 12/28/16 Acetaminophen with Codeine (Acetaminophen-Cod #3 Tablet) 1 Each Tablet, 1 TAB PO Q6H Y for PAIN, #10 TAB Prov:VAN MITCHELL MD 12/21/16 Neomycin/Polymyxin/Hydrocort* (Cortisporin* Otic) 10 Ml Susp, 4 DROP RIGHT EAR QID for 7 Days, EA Prov:VAN MITCHELL MD 12/21/16 Doxycycline Hyclate* (Doxycycline Hyclate*) 100 Mg Tablet.dr, 100 MG PO BID for 7 Days, TAB Prov:VAN MITCHELL MD 12/21/16 Azithromycin* (Zithromax*) 250 Mg Tablet, 250 MG PO .ZPACK DIRECTED, #6 TAB TAKE 500 MG (2 TABS) THE FIRST DAY THEN 250 MG (1 TAB) DAYS 2-5 Prov:SAWYER PACHECO 11/28/16 Dextromethorphan Hb-Promethazine Hcl (Promethazine DM Syrup) 473 Ml Syrup, 10 ML PO Q6H Y for tos, #4 OZ Prov:SAWYER PACHECO 11/28/16 Ibuprofen* (Motrin*) 600 Mg Tab, 600 MG PO Q6, #20 TAB Prov:VAN MITCHELL MD 11/17/16 Tramadol HCl (Tramadol HCl) 50 Mg Tablet, 50 MG PO Q4 Y for PAIN, #20 TAB Prov:VAN MITCHELL MD 11/17/16 Cephalexin* (Keflex*) 500 Mg Capsule, 500 MG PO QID for 10 Days, CAP Prov:VAN MITCHELL MD 11/17/16 Phenazopyridine Hcl* (Pyridium*) 200 Mg Tab, 200 MG PO TID Y for URINARY PAIN, # 6 TAB Prov:DAKOTA SAAVEDRA NP 11/06/16 Nitrofurantoin Monohyd Macrocr* (Macrobid*) 100 Mg Capsr, 100 MG PO BID for 7 Days, CAP Prov:DAKOTA SAAVEDRA NP 11/06/16 Amoxicillin* (Amoxicillin*) 500 Mg Cap, 500 MG PO TID for 10 Days, CAP Prov:CHANTEL LÓPEZ PA-C 04/07/16 Ibuprofen* (Motrin*) 600 Mg Tab, 600 MG PO Q6, #30 TAB Prov:CHANTEL LÓPEZ PA-C 04/07/16 Ibuprofen* (Ibuprofen*) 600 Mg Tablet, 600 MG PO Q6, #30 TAB Prov:CHANTEL LÓPEZ PA-C 10/03/15 Amoxicillin-Clavulanate K* (Augmentin*) 875 Mg Tab, 875 MG PO BID for 7 Days, TAB Prov:CHANTEL LÓPEZ PA-C 10/03/15 Hydrocodone Bit-Acetaminophen* ([place]*) 5-325 Mg Tab, 1 TAB PO Q4H Y for PAIN, # 20 TAB Prov:CHANTEL LÓPEZ PA-C 10/03/15 Reported Medications Calcium Carbonate (Calcium) 1 Tab Tablet 09/01/10 Vit B12/Pyridoxine Hcl/Vit B1 (Pv Neuro Eve Tablet) 1 Tab Tablet 09/01/10 Ferrous Gluconate (Iron) 1 Tab Tablet 09/01/10 Vit/Fe Fumarate/Fa (Prenafirst Tablet) 1 Tab Tablet 09/01/10 [ Vitamins] No Conflict Check 06/29/10 Allergies Allergies: Coded Allergies: No Known Drug Allergies (Verified Allergy, Mild, 08/11/17) PMhx/Soc History of Surgery: Yes (csection) Anesthesia Reaction: No Hx Neurological Disorder: No Hx Respiratory Disorders: No Hx Cardiac Disorders: No Hx Psychiatric Problems: No Hx Miscellaneous Medical Probl: No Hx Alcohol Use: No Hx Substance Use: No Hx Tobacco Use: No Smoking Status: Never smoker Physical Exam Vitals Vital Signs Date Time Temp Pulse Resp B/P Pulse Ox O2 Delivery O2 Flow Rate FiO2 10/29/17 12:24 97.9 88 18 141/71 97 Physical Exam Const: [] Alert, [id number]. Head: Atraumatic Eyes: Normal Conjunctiva ENT: Normal External Ears, Nose and Mouth. TMs and oropharynx normal. Neck: Full range of motion..~ No meningismus. Resp: Clear to auscultation bilaterally Cardio: Regular rate and rhythm, no murmurs Abd: Soft, non tender, non distended. Normal bowel sounds Skin: No petechiae or rashes Back: No midline or flank tenderness Ext: No cyanosis, or edema Neur: Awake and alert Psych: Normal Mood and Affect Procedures/MDM Patient presents with URI symptoms for 1 day and a normal exam. She will treated with promethazine and ibuprofen, return precautions primary care follow- up. There is no evidence of hypoxemia or respiratory distress and patient has no chest pain or abdominal pain. The patient was stable with no new complaints during the ER course. Clinically, there is no current evidence to suggest meningitis, sepsis, acute abdomen, pneumonia, acute coronary syndrome, pulmonary embolism, or any other emergent condition appearing to require further evaluation or hospitalization. The patient should certainly return for any new or worsening symptoms per the aftercare instructions. They should otherwise follow-up with her primary care doctor for reevaluation this week. Departure Diagnosis: Primary Impression: Upper respiratory infection URI type: unspecified URI Qualified Code: J06.9 - Upper respiratory tract infection, unspecified type Condition: Stable Patient Instructions: Uri, Viral, No Abx (Adult) Additional Instructions: probablamente un virus que dura 2-4 talavera. cheque otro vez en el proximo tseve para mas simptomas- vomito, dolor, matt, problemas con respirando, o con metzger doctor primario. VAN MITCHELL MD Oct 29, 2017 14:48
== END 2017-10-29 15:16 | disposition home or self-care (01) ==
LOC: FTE 12:17
DX: J06.9 Acute upper respiratory infection, unspecified (principal)
CPT/HCPCS: 99283

== ENCOUNTER 2017-12-06 14:45 | Emergency (ER) | END 2017-12-06 16:26 | disposition home or self-care (01) ==

== ENCOUNTER 2018-01-02 08:34 | Emergency (ER) | END 2018-01-02 10:29 | disposition home or self-care (01) ==

== ENCOUNTER 2018-02-21 08:41 | Emergency (ER) | END 2018-02-21 09:50 | disposition home or self-care (01) ==

== ENCOUNTER 2018-08-21 14:07 | Emergency (ER) | END 2018-08-21 16:14 | disposition home or self-care (01) ==

== ENCOUNTER 2018-11-28 09:41 | Emergency (ER) | payer BC ==
[~2018-11-28] VITALS: Wt 90.0 kg
[~2018-11-28 09:41] MED LIST changes: +ACET325T33 PO; +AZIT250T PO; -AZIT250T94 PO; +BENZ-6 PO; +CIPR7.5D RIGHT EAR; -CIPR7.5D4 RIGHT EAR; +D-ME473S2 PO; -IBUP800T25 PO; +IBUP800T48 PO; +LORA1TAB54 PO; -NAPR-260 PO; +NAPR-985 PO
[2018-11-28 09:42] VITALS: BP 131/79; PULSE 91; RESP 18
[2018-11-28] MEDS ORDERED: PROM6.2515 PO (10:07)
[2018-11-28] MEDS ORDERED: PSEU-79 PO (10:07)
[2018-11-28] MEDS ORDERED: NAPR-985 PO (10:07)
--- NOTE | 2018-11-28 11:11 | ERD ---
ER Documentation Chief Complaint Chief Complaint SORE THROAT HPI 43-year-old female presenting with sore throat. Patient has had this for 4 days. No fevers. She has had a productive cough and runny nose. Has not taken medication today however took ibuprofen and Robitussin yesterday. No sick contacts. Denies medical problems. NKDA. Surgical history . Social history denies ROS All systems reviewed and are negative except as per history of present illness. Medications Home Meds Active Scripts Promethazine Hcl* (Promethazine Hcl* Syrup) 6.25 Mg/5 Ml Syrup, 6.25 MG PO Q6H PRN for COUGH, #100 ML Prov:JAVON PATEL PA-C 11/28/18 Pseudoephedrine Hcl* (Suphedrin*) 30 Mg Tablet, 30 MG PO Q6 PRN for CONGESTION, #30 TAB Prov:JAVON PATEL PA-C 11/28/18 Naproxen* (Naprosyn*) 500 Mg Tablet, 500 MG PO BID PRN for PAIN AND/OR INFL AMMATION, #30 TAB Prov:JAVON PATEL PA-C 11/28/18 Ibuprofen* (Motrin*) 600 Mg Tab, 600 MG PO Q6, #20 TAB Prov:VAN MITCHELL MD 08/21/18 Phenazopyridine Hcl* (Pyridium*) 200 Mg Tab, 200 MG PO TID PRN for URINARY PAIN, #10 TAB Prov:PAOLA VALLEJO PA-C 02/21/18 Cephalexin* (Keflex*) 500 Mg Capsule, 500 MG PO TID for 7 Days, CAP Prov:PAOLA VALLEJO PA-C 02/21/18 Loratadine/Pseudoephedrine* (Claritin-D* 12 Hr) 5-120 Mg Tab.er.12h, 1 TAB PO Q12, #30 TAB.SA Prov:PAOLA VALLEJOC 01/02/18 Acetaminophen* (Tylenol*) 325 Mg Tablet, 2 TAB PO Q4 PRN for PAIN AND OR ELEVATED TEMP, #30 TAB Prov:PAOLA VALLEJOC 01/02/18 Benzonatate* (Tessalon Perle*) 100 Mg Capsule, 100 MG PO Q8H PRN for COUGH, #30 CAP Prov:PAOLA VALLEJOC 01/02/18 Azithromycin* (Zithromax*) 250 Mg Tablet, 250 MG PO .SCOTTY DIRECTED, #6 TAB TAKE 500 MG (2 TABS) THE FIRST DAY THEN 250 MG (1 TAB) DAYS 2-5 Prov:NANCY SPRINGERC 12/06/17 Dextromethorphan Hb-Promethazine Hcl* (Promethazine DM* Syrup) 473 Ml Syrup, 5 ML PO Q6 PRN for COUGH for 5 Days, ML Prov:VAN MITCHELL MD 10/29/17 Ibuprofen* (Motrin*) 600 Mg Tab, 600 MG PO Q6, #15 TAB Prov:VAN MITCHELL MD 10/29/17 Amoxicillin* (Amoxicillin*) 500 Mg Cap, 500 MG PO TID for 7 Days, CAP Prov:IESHA WHITT NP 08/11/17 Ibuprofen* (Motrin*) 800 Mg Tab, 800 MG PO Q6H PRN for PAIN AND OR ELEVATED TEMP, #30 TAB Prov:IESHA WHITT NP 08/11/17 Naproxen* (Naprosyn*) 500 Mg Tablet, 500 MG PO BID PRN for PAIN AND/OR INFLAMMATION, #30 TAB Prov:LUZ MARIA MCKEON PA-C 01/25/17 Neomycin/Polymyxin/Hydrocort* (Cortisporin* Otic) 10 Ml Susp, 4 DROP RIGHT EAR QID for 14 Days, EA Prov:LUZ MARIA MCKEONC 01/25/17 Ibuprofen* (Motrin*) 600 Mg Tab, 600 MG PO Q6H PRN for PAIN AND OR ELEVATED TEMP, #30 TAB Prov:IESHA WHITT NP 12/28/16 Amoxicillin/Potassium Clav (Amox-Clav 875-125 mg Tablet) 875-125 mg Tab, 1 TAB PO BID for 7 Days, #14 TAB Prov:IESHA WHITT NP 12/28/16 Ciprofloxacin Hcl/Dexameth (Ciprodex Otic Suspension) 7.5 Ml Drops.susp, 4 DROP RIGHT EAR BID for 7 Days, EA Prov:IESHA WHITT NP 12/28/16 Acetaminophen with Codeine (Acetaminophen-Cod #3 Tablet) 1 Each Tablet, 1 TAB PO Q6H PRN for PAIN, #10 TAB Prov:VAN MITCHELL MD 12/21/16 Neomycin/Polymyxin/Hydrocort* (Cortisporin* Otic) 10 Ml Susp, 4 DROP RIGHT EAR QID for 7 Days, EA Prov:VAN MITCHELL MD 12/21/16 Doxycycline Hyclate* (Doxycycline Hyclate*) 100 Mg Tablet.dr, 100 MG PO BID for 7 Days, TAB Prov:VAN MITCHELL MD 12/21/16 Azithromycin* (Zithromax*) 250 Mg Tablet, 250 MG PO .ZPACK DIRECTED, #6 TAB TAKE 500 MG (2 TABS) THE FIRST DAY THEN 250 MG (1 TAB) DAYS 2-5 Prov:SAWYER PACHECO 11/28/16 Dextromethorphan Hb-Promethazine Hcl (Promethazine DM Syrup) 473 Ml Syrup, 10 ML PO Q6H PRN for tos, #4 OZ Prov:SAWYER PACHECO 11/28/16 Ibuprofen* (Motrin*) 600 Mg Tab, 600 MG PO Q6, #20 TAB Prov:VAN MITCHELL MD 11/17/16 Tramadol HCl (Tramadol HCl) 50 Mg Tablet, 50 MG PO Q4 PRN for PAIN, #20 TAB Prov:VAN MITCHELL MD 11/17/16 Cephalexin* (Keflex*) 500 Mg Capsule, 500 MG PO QID for 10 Days, CAP Prov:VAN MITCHELL MD 11/17/16 Phenazopyridine Hcl* (Pyridium*) 200 Mg Tab, 200 MG PO TID PRN for URINARY PAIN, #6 TAB Prov:DAKOTA SAAVEDRA NP 11/06/16 Nitrofurantoin Monohyd Macrocr* (Macrobid*) 100 Mg Capsr, 100 MG PO BID for 7 Days, CAP Prov:DAKOTA SAAVEDRA NP 11/06/16 Amoxicillin* (Amoxicillin*) 500 Mg Cap, 500 MG PO TID for 10 Days, CAP Prov:CHANTEL LÓPEZ PA-C 04/07/16 Ibuprofen* (Motrin*) 600 Mg Tab, 600 MG PO Q6, #30 TAB Prov:CHANTEL LÓPEZ PA-C 04/07/16 Ibuprofen* (Ibuprofen*) 600 Mg Tablet, 600 MG PO Q6, #30 TAB Prov:CHANTEL LÓPEZ PA-C 10/03/15 Amoxicillin-Clavulanate K* (Augmentin*) 875 Mg Tab, 875 MG PO BID for 7 Days, TAB Prov:CHANTEL LÓPEZ PA-C 10/03/15 Hydrocodone Bit-Acetaminophen* ([place]*) 5-325 Mg Tab, 1 TAB PO Q4H PRN for PAIN, #20 TAB Prov:CHANTEL LÓPEZ PA-C 10/03/15 Reported Medications Calcium Carbonate (Calcium) 1 Tab Tablet 09/01/10 Vit B12/Pyridoxine Hcl/Vit B1 (Pv Neuro Eve Tablet) 1 Tab Tablet 09/01/10 Ferrous Gluconate (Iron) 1 Tab Tablet 09/01/10 Vit/Fe Fumarate/Fa (Prenafirst Tablet) 1 Tab Tablet 09/01/10 [ Vitamins] No Conflict Check 06/29/10 Allergies Allergies: Coded Allergies: No Known Drug Allergies (Verified Allergy, Mild, 08/21/18) PMhx/Soc History of Surgery: Yes (C SECTION) Anesthesia Reaction: No Hx Neurological Disorder: No Hx Respiratory Disorders: No Hx Cardiac Disorders: Yes (HYPERCHOLESTEROLEMIA) Hx Psychiatric Problems: No Hx Miscellaneous Medical Probl: Yes (DM) Hx Alcohol Use: No Hx Substance Use: No Hx Tobacco Use: No Smoking Status: Never smoker FmHx Family History: No diabetes, No coronary disease, No other Physical Exam Vitals Vital Signs Date Temp Pulse Resp B/P (MAP) Pulse Ox O2 O2 Flow FiO2 Time Delivery Rate 11/28/18 98.1 91 18 131/79 99 09:42 (96) Physical Exam GENERAL: The patient is well-appearing, well-nourished, in no acute distress HEENT: Atraumatic. Conjunctivae are pink. Pupils equal, round, and reactive to light. There is no scleral icterus. Tympanic membranes clear bilaterally. Oropharynx clear. NECK: C-spine is soft and supple. There is no meningismus. There is no cervical lymphadenopathy. CHEST: Clear to auscultation bilaterally. There are no rales, wheezes or rhonchi. HEART: Regular rate and rhythm. No murmurs, clicks, rubs or gallops. Procedures/MDM MDM: 43-year-old female presenting with URI symptoms.. I have low suspicion for bacterial HEENT infection. Patient likely has viral syndrome. Patient is discharged stricter precautions and told to follow-up with primary care within 1-2 days for close evaluation Departure Diagnosis: Primary Impression: URI (upper respiratory infection) Condition: Stable Patient Instructions: Uri, Viral, No Abx (Adult) Referrals: [facility] YOU HAVE RECEIVED A MEDICAL SCREENING EXAM AND THE RESULTS INDICATE THAT YOU DO NOT HAVE A CONDITION THAT REQUIRES URGENT TREATMENT IN THE EMERGENCY DEPARTMENT. FURTHER EVALUATION AND TREATMENT OF YOUR CONDITION CAN WAIT UNTIL YOU ARE SEEN IN YOUR DOCTORS OFFICE WITHIN THE NEXT 1-2 DAYS. IT IS YOUR RESPONSIBILITY TO MAKE AN APPOINTMENT FOR FOLOW-UP CARE. IF YOU HAVE A PRIMARY DOCTOR --you should call your primary doctor and schedule an appointment IF YOU DO NOT HAVE A PRIMARY DOCTOR YOU CAN CALL OUR PHYSICIAN REFERRAL HOTLINE AT IF YOU CAN NOT AFFORD TO SEE A PHYSICIAN YOU CAN CHOSE FROM THE FOLLOWING [facility] [address] [facility]. [facility] [address] [place] [facility] [address] [facility] [facility] [address] [facility]. [facility] [address] [facility]. [facility]. [address] Additional Instructions: FOLLOW UP WITH YOUR PRIMARY CARE PHYSICIAN TOMORROW.Return to this facility if you are not improving as expected. JAVON PATEL PA-C Nov 28, 2018 11:11
== END 2018-11-28 10:39 | disposition home or self-care (01) ==
LOC: FTE 09:41
DX: J06.9 Acute upper respiratory infection, unspecified (principal); E11.9 Type 2 diabetes mellitus without complications
CPT/HCPCS: 99282

== ENCOUNTER 2019-07-31 13:24 | Emergency (ER) | payer BC ==
[~2019-07-31] VITALS: Ht 157.5 cm; Wt 80.5 kg
[~2019-07-31 13:24] MED LIST changes: +ACET500C5 PO; +DOXY-214 PO; -DOXY100T20 PO; +PROM6.2515 PO; +PSEU-79 PO; +SULF15DR19 LEFT EYE; +TAMS-14 PO
[2019-07-31 13:33] VITALS: BP 126/75; PULSE 88; RESP 18; Ht 157.5 cm; Wt 80.5 kg
== END 2019-07-31 13:57 | disposition home or self-care (01) ==
LOC: E/R 13:24
DX: H00.025 Hordeolum internum left lower eyelid (principal)
CPT/HCPCS: 99283